=== PATIENT | male | born 1990 | race Caucasian/White ===

== ENCOUNTER 2017-03-18 18:05 | Emergency (ER) | payer SELFPAY ==
[2017-03-18] MEDS ORDERED: Dental Adhesive 1 Tube DENT ONE ×3 (18:51→19:13)
--- NOTE | 2017-03-18 18:56 | EDM.PDOC ---
ED HPI GENERAL MEDICAL PROBLEM - General Chief Complaint: General Stated Complaint: CHIPPED TOOTH Time Seen by Provider: 03/18/17 18:45 Source of Information: Reports: Patient History Limitations: Reports: No Limitations - History of Present Illness INITIAL COMMENTS - FREE TEXT/NARRATIVE: 27-year-old male has likely had a cavity on the anterior aspect of the first molar on the right mandible for some time but this morning he tripped over his dog dislodging a piece of the anterior tooth which is now very painful. No other injury. Onset: Today Duration: Hour(s): (About 8 hours ago) Severity: Mild Worsens with: Reports: Other (He feels cold air on the tooth, it's very difficult to eat or drink anything) - Related Data Allergies Allergy/AdvReac Type Severity Reaction Status Date / Time Penicillins Allergy Airway Verified 03/18/17 18:36 Tightness Home Meds: Home Meds NK [No Known Home Meds] 03/18/17 [History] Past Medical History - Past Health History Medical/Surgical History: Denies Medical/Surgical History Social & Family History - Tobacco Use Smoking Status *Q: Current Every Day Smoker Years of Tobacco use: 15 Packs/Tins Daily: 1 ED ROS GENERAL - Review of Systems Review Of Systems: See Below Constitutional: Denies: Fever HEENT: Reports: Dental Pain, Other (No facial swelling or erythema) Respiratory: Denies: Shortness of Breath GI/Abdominal: Denies: Nausea, Vomiting Skin: Reports: No Symptoms Neurological: Reports: No Symptoms ED EXAM, GENERAL - Physical Exam Exam: See Below Exam Limited By: No Limitations General Appearance: Alert, No Apparent Distress Throat/Mouth: Other (Patient does have a defect, fairly deep, on the anterior aspect of the first molar of the right mandible) Course - Vital Signs Last Recorded V/S: Last Vital Signs Temp 98.1 F 03/18/17 18:39 Pulse 69 03/18/17 18:39 Resp 14 03/18/17 18:39 BP 145/85 H 03/18/17 18:39 Pulse Ox 98 03/18/17 18:39 - Orders/Labs/Meds Meds: Medications Discontinued Medications Generic Name Dose Route Start Last Admin Trade Name Freq PRN Reason Stop Dose Admin Denture Adhesive 1 applic 03/18/17 18:51 03/18/17 19:03 Dentemp Custom DENT 03/18/17 18:52 1 applic ONETIME ONE Administration Denture Adhesive 1 applic 03/18/17 19:12 Dentemp Custom DENT 03/18/17 19:13 ONETIME ONE Denture Adhesive Confirm 03/18/17 19:13 Dentemp Custom Administered 03/18/17 19:14 Dose 1 applic DENT .STK-MED ONE - Re-Assessments/Exams Free Text/Narrative Re-Assessment/Exam: 03/18/17 18:55 This defect looks very amenable to some denttemp. 03/18/17 19:31 [place] temp was placed over the defect. Patient was placed on clindamycin 300 mg 3 times a day, given 10 hydrocodone to take along with his ibuprofen for pain control and will try to get worked into the dentist office on Monday for a formal exam and treatment. Departure - Departure Time of Disposition: 19:44 Disposition: Home, Self-Care 01 Condition: Good Clinical Impression: Fracture, tooth Qualifiers: Encounter type: initial encounter Fracture type: closed Qualified Code(s): S02.5XXA - Fracture of tooth (traumatic), initial encounter for closed fracture - Discharge Information Instructions: Tooth Injuries Referrals: PCP,None [Primary Care Provider] - Forms: ED Department Discharge Care Plan Goals: Take antibiotic as directed 3 times a day, soft foods for the next 1-2 days to avoid dislodging the filling, and attempt to be worked into the dentist office on Monday.
== END 2017-03-18 19:44 | disposition home or self-care (01) ==
LOC: JP.ED 18:05
DX: S02.5XXA Fracture of tooth (traumatic), initial encounter for closed fracture (principal); Z88.0 Allergy status to penicillin; F17.210 Nicotine dependence, cigarettes, uncomplicated; W01.0XXA Fall on same level from slipping, tripping and stumbling without subsequent striking against object, initial encounter
CPT/HCPCS: 99283; A9270

== ENCOUNTER 2017-04-30 12:35 | Emergency (ER) | payer BC ==
--- NOTE | 2017-04-30 13:36 | EDM.PDOC ---
ED HPI GENERAL MEDICAL PROBLEM - General Chief Complaint: General Stated Complaint: DRY SOCKET Time Seen by Provider: 04/30/17 13:26 Source of Information: Reports: Patient, RN Notes Reviewed History Limitations: Reports: No Limitations - History of Present Illness INITIAL COMMENTS - FREE TEXT/NARRATIVE: 27-year-old gentleman presents emergency department today following a dental procedure couple days ago he had 2 molars extracted in his lower jaw since that time he is now had increasing pain of the point where he cannot eat no fevers Tooth/Teeth Pain Score (Numeric/FACES): 8 - Related Data Allergies Allergy/AdvReac Type Severity Reaction Status Date / Time amoxicillin Allergy Respiratory Verified 04/30/17 13:11 Distress Penicillins Allergy Airway Verified 04/30/17 13:11 Tightness Home Meds: Home Meds Naproxen [Naproxen] 500 mg PO BID PRN 04/30/17 [History] Past Medical History Respiratory History: Reports: Asthma Neurological History: Reports: Concussion Psychiatric History: Reports: ADHD, Bipolar, Depression, Psych Hospitalization(s ) Dermatologic History: Reports: Cellulitis - Infectious Disease History Infectious Disease History: Reports: Chicken Pox - Past Surgical History HEENT Surgical History: Reports: Oral Surgery Social & Family History - Tobacco Use Smoking Status *Q: Current Every Day Smoker Years of Tobacco use: 15 Packs/Tins Daily: 1 - Caffeine Use Caffeine Use: Reports: None - Recreational Drug Use Recreational Drug Use: No ED ROS GENERAL - Review of Systems Review Of Systems: See Below Constitutional: Denies: Fever, Chills HEENT: Reports: Dental Pain Respiratory: Reports: No Symptoms Cardiovascular: Reports: No Symptoms ED EXAM, GENERAL - Physical Exam Exam: See Below Free Text/Narrative:: Mouth mucosa is moist and pink no erythema or exudate noted in soft palate tongue is midline uvula is midline he is missing dentition #18 and #31 it is tender to the touch around this area Exam Limited By: No Limitations General Appearance: Alert, WD/WN, No Apparent Distress Respiratory/Chest: No Respiratory Distress Course - Vital Signs Last Recorded V/S: Last Vital Signs Temp 97.8 F 04/30/17 13:12 Pulse 68 04/30/17 13:12 Resp 16 04/30/17 13:12 BP 130/94 H 04/30/17 13:12 Pulse Ox 100 04/30/17 13:12 Departure - Departure Time of Disposition: 13:36 Disposition: Home, Self-Care 01 Condition: Good Clinical Impression: Alveolar osteitis - Discharge Information Referrals: PCP,None [Primary Care Provider] - Additional Instructions: Take full course of antibiotics, use hydrocodone as needed for pain control in combination with ibuprofen, please follow-up with your dentist as soon as possible, call return to the emergency department with worsening of symptoms - Assessment/Plan Plan: Assessment Acuity = acute Site and laterality = alveolar osteitis Etiology = secondary to dental extraction Manifestations = pain Location of injury = Home Lab values = none Plan He does have an allergy to penicillin cover with clindamycin 300 mg by mouth 4 times a day 10 days in combination with ibuprofen and hydrocodone 5/325 one tablet by mouth 3 times a day when necessary total #10 tablets provided he is to follow-up with his dentist as soon as possible This note was dictated using [employer] voice recognition software please call with any questions on syntax or [place].
== END 2017-04-30 13:50 | disposition home or self-care (01) ==
LOC: JP.ED 12:35
DX: M27.3 Alveolitis of jaws (principal); Z88.0 Allergy status to penicillin; Z88.1 Allergy status to other antibiotic agents; F17.210 Nicotine dependence, cigarettes, uncomplicated
CPT/HCPCS: 99283

== ENCOUNTER 2017-08-18 20:32 | Emergency (ER) | payer BC ==
--- NOTE | 2017-08-18 21:15 | EDM.PDOC ---
ED HPI GENERAL MEDICAL PROBLEM - General Chief Complaint: Chest Pain Stated Complaint: PAIN IN RIGHT SIDE OF CHEST Time Seen by Provider: 08/18/17 21:00 Source of Information: Reports: Patient, Family History Limitations: Reports: No Limitations - History of Present Illness INITIAL COMMENTS - FREE TEXT/NARRATIVE: 27-year-old male with recurring right sided anterior chest discomfort, sharp and intermittent over the past year. Tonight he was out eating supper and had a sharp pain so came into the emergency room. He initially has a hard time breathing but it goes away fairly quickly. No fevers or chills, no shortness of breath, no abdominal pain, no nausea or vomiting, no trauma. 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: Other (see below) Other Treatments TRANSFER STATION OPERATOR: none Right Lower Chest Pain Score (Numeric/FACES): 7 - Related Data Allergies Allergy/AdvReac Type Severity Reaction Status Date / Time amoxicillin Allergy Respiratory Verified 08/18/17 20:59 Distress Penicillins Allergy Airway Verified 08/18/17 20:59 Tightness Home Meds: Home Meds NK [No Known Home Meds] 08/18/17 [History] Past Medical History - Past Health History Medical/Surgical History: Denies Medical/Surgical History Respiratory History: Reports: Asthma Neurological History: Reports: Concussion Psychiatric History: Reports: ADHD, Bipolar, Depression, Psych Hospitalization(s ) Dermatologic History: Reports: Cellulitis - Infectious Disease History Infectious Disease History: Reports: Chicken Pox - Past Surgical History HEENT Surgical History: Reports: Oral Surgery Social & Family History - Tobacco Use Smoking Status *Q: Unknown Ever Smoked Years of Tobacco use: 15 Packs/Tins Daily: 1 - Caffeine Use Caffeine Use: Reports: Energy Drinks, Soda - Recreational Drug Use Recreational Drug Use: No ED ROS GENERAL - Review of Systems Review Of Systems: ROS reveals no pertinent complaints other than HPI. ED EXAM, GENERAL - Physical Exam Exam: See Below Exam Limited By: No Limitations General Appearance: Alert, No Apparent Distress Head: Atraumatic Respiratory/Chest: No Respiratory Distress, Lungs Clear, Other (He did have some moderate tenderness to palpation in the intercostal space of the lower right anterior chest) Cardiovascular: Regular Rate, Rhythm GI/Abdominal: Soft, Non-Tender Neurological: Alert, Oriented Psychiatric: Normal Affect, Normal Mood Skin Exam: Warm, Dry Course - Vital Signs Last Recorded V/S: Last Vital Signs Temp 97.1 F 08/18/17 20:56 Pulse 74 08/18/17 20:56 Resp 16 08/18/17 20:56 BP 138/86 08/18/17 20:56 Pulse Ox 98 08/18/17 20:56 - Orders/Labs/Meds Orders: Active Orders 24 hr Category Date Time Status Chest 2V [CR] Stat Exams 08/18/17 21:14 Taken - Re-Assessments/Exams Free Text/Narrative Re-Assessment/Exam: 08/18/17 22:14 A two-view chest x-ray was obtained which was normal. I believe this patient has some chronic costochondritis which may be causing some intercostal muscle spasm. He does not want to take anti-inflammatories because it just makes him "sweat". We'll try a short course of prednisone, 50 mg daily for 5 days along with Tylenol, and he can recheck next week with primary care for further evaluation if not improving satisfactorily. Departure - Departure Time of Disposition: 22:27 Disposition: Home, Self-Care 01 Condition: Good Clinical Impression: Atypical chest pain - Discharge Information Instructions: Chest Wall Pain, [id number] Referrals: PCP,None [Primary Care Provider] - Forms: ED Department Discharge Care Plan Goals: Take 5 pills of prednisone with your morning meal for the next 3-6 days. Tylenol may help as well, stay active. Recheck next week if not improving satisfactorily. - My Orders Last 24 Hours: My Active Orders 08/18/17 21:14 Chest 2V [CR] Stat - Assessment/Plan Last 24 Hours: My Active Orders 08/18/17 21:14 Chest 2V [CR] Stat
--- NOTE | 2017-08-21 08:53 | CR ---
Chest 2V INDICATION: right chest pain COMPARISON: 01/04/2010 FINDINGS: Two views. Heart size normal. Lungs are clear. No infiltrate or pleural effusion. No sig ns of pulmonary edema. IMPRESSION: Negative chest.
== END 2017-08-18 22:28 | disposition home or self-care (01) ==
LOC: JP.ED 20:32
DX: R07.89 Other chest pain (principal); Z88.0 Allergy status to penicillin; Z88.1 Allergy status to other antibiotic agents
CPT/HCPCS: 71046; 71046-26; 99285